=== PATIENT | male | born 1930 | race Hispanic/Latino ===

== ENCOUNTER 2017-09-29 10:06 | Inpatient (IN) | payer OTHER ==
[~2017-09-29] VITALS: Ht 160 cm; Wt 78.0 kg
[2017-09-29 10:51] LABS: BASOPHILS % (AUTO) 0.6 % (0.0-5.0); EOSINOPHILS % (AUTO) 1.2 % (0.0-8.0); HEMATOCRIT 32.6 % (42-54); LYMPHOCYTES % (AUTO) 13.2 % (21.0-51.0); MEAN CORPUSCULAR HEMOGLOBIN 34.5 pg (27.0-33.0); MEAN CORPUSCULAR HGB CONC 34.8 g/dL (32.0-36.0); MEAN CORPUSCULAR VOLUME 99.4 fL (79-99); MONOCYTES % (AUTO) 8.3 % (3.0-13.0); NEUTROPHILS % (AUTO) 76.7 % (40.0-77.0); PLATELET COUNT (AUTO) 206 K/uL (130-400); RED BLOOD CELL COUNT(AUTO) 3.28 MIL/uL (4.50-6.20); RED CELL DISTRIBUTION WIDTH 14.8 % (11.0-15.5); WHITE BLOOD COUNT (AUTO) 5.1 K/uL (4.8-10.8)
[2017-09-29 11:07] LABS: CREATININE 1.4 mg/dL (0.5-1.5); POTASSIUM 4.9 mmol/L (3.5-5.1)
[2017-09-29 11:21] LABS: CREATINE KINASE MB 2.5 ng/mL (0.5-3.6)
[2017-09-29 11:42] LABS: INR 0.94 (0.85-1.15); PARTIAL THROMBOPLASTIN TIME 27.8 SEC (26.3-35.5); PROTHROMBIN TIME 9.7 SEC (9.6-11.6)
[2017-09-29 12:06] LABS: APPEARANCE,URINE Clear (CLEAR); BILIRUBIN,URINE Negative (NEGATIVE); COLOR,URINE Yellow (YELLOW); GLUCOSE, URINE (UA) Negative (NEGATIVE); KETONES,URINE Negative (NEGATIVE); LEUKOCYTE ESTERASE ,URINE Negative (NEGATIVE); NITRATE,URINE Negative (NEGATIVE); OCCULT BLOOD,URINE Negative (NEGATIVE); PROTEIN,URINE Negative (NEGATIVE); UROBILINOGEN,URINE 0.2 mg/dL (0.2-1.0)
[2017-09-29] MEDS ORDERED: MAG HYDROX/AL HYDROX/SIMETH ES 30 ML SUSP UDCUP PO PRN (14:30)
[2017-09-29] MEDS ORDERED: POTASSIUM CHLORIDE 20 MEQ ERTAB PO PRN (14:30)
[2017-09-29] MEDS ORDERED: LACTULOSE 20 GM/30 ML UDCUP PO PRN (14:30)
[2017-09-29] MEDS ORDERED: LEVOFLOXACIN 500 MG/D5W 100 ML 100 ML IV SCH (14:30)
[2017-09-29] MEDS ORDERED: HYDRALAZINE HCL 20 MG/ML VIAL IV PRN (14:30)
[2017-09-29] MEDS ORDERED: ACETAMINOPHEN 325 MG TAB PO PRN ×2 (14:30)
[2017-09-29] MEDS ORDERED: ONDANSETRON HCL 4 MG/2 ML VIAL IV PRN (14:30)
[2017-09-29] MEDS ORDERED: GUAIFENESIN-DM 200/20 MG 10 ML PO PRN (14:30)
[2017-09-29] MEDS ORDERED: POTASSIUM CHLORIDE 20MEQ/100ML 100 ML IV PRN (14:30)
[2017-09-29] MEDS ORDERED: NITROGLYCERIN 0.4 MG SL TAB SL PRN (14:30)
[2017-09-29] MEDS ORDERED: MORPHINE SULFATE 4 MG/1ML SYG IV PRN (14:30)
[2017-09-29] MEDS ORDERED: MORPHINE SULFATE 2 MG/ML 1ML SYG IV PRN (14:30)
[2017-09-29] MEDS ORDERED: POTASSIUM CHLORIDE 10% ELIXIR 20 MEQ/15 ML UDCUP PO PRN (14:30)
[2017-09-29] MEDS ORDERED: LIDOCAINE HCL-MPF 1% 2ML VIAL IVP PRN (14:30)
[2017-09-29] MEDS ORDERED: ACETAMINOPHEN-CODEINE 300/30MG TAB PO PRN ×2 (14:30)
[2017-09-29 17:35] VITALS: BP 122/66
[2017-09-29] MEDS ORDERED: ISOS20TA7 PO (17:35)
[2017-09-29] MEDS ORDERED: CLOP75TA32 PO (17:35)
[2017-09-29] MEDS ORDERED: LOSA25TA21 PO (17:35)
[2017-09-29] MEDS ORDERED: CARB-101 PO (17:35)
[2017-09-29] MEDS ORDERED: ROPI3TAB3 PO (17:35)
[2017-09-29] MEDS ORDERED: ATOR40TA69 PO (17:35)
[2017-09-29] MEDS ORDERED: RASA0.5T2 PO (17:35)
[2017-09-29] MEDS ORDERED: CLIN300C9 PO (17:35)
[2017-09-29] MEDS ORDERED: RANO500T2 PO (17:35)
[2017-09-29] MEDS ORDERED: RASA1TAB4 PO (17:35)
[2017-09-29] MEDS ORDERED: FURO20TA4 PO (17:35)
[2017-09-29] MEDS ORDERED: LEVO112T7 PO (17:35)
[2017-09-29] MEDS ORDERED: POTA-79 PO (17:35)
[2017-09-29] MEDS ORDERED: METO-408 PO (17:35)
[2017-09-29 20:00] VITALS: BP 97/54
[2017-09-29] MEDS ORDERED: IPRATROPIUM/ALBUTEROL SULFATE 3 ML SOLUTION IH SCH (21:30)
[2017-09-29] MEDS: FAMOTIDINE 20MG TAB 20 MG TAB PO SCH (21:32)
[2017-09-29] MEDS: METOPROLOL TARTRATE 25 MG TAB PO SCH (21:36)
[2017-09-29 21:38] VITALS: BP 137/57
[2017-09-30] VITALS (7 sets, daily range): BP systolic 122–156; BP diastolic 58–79
[2017-09-30] MEDS ORDERED: VANCOMYCIN 1GM+NS 250ML 250 ML IV SCH
[2017-09-30] MEDS ORDERED: VANCOMYCIN PROTOCOL PER PHARMACY IV SCH
[2017-09-30] MEDS ORDERED: IPRATROPIUM/ALBUTEROL SULFATE 3 ML SOLUTION IH PRN (00:15)
[2017-09-30] MEDS ORDERED: VANCOMYCIN 1GM+NS 250ML 250 ML IV ONE (01:17)
[2017-09-30] MEDS: VANCOMYCIN 1.5 GM in SODIUM CHLORIDE 0.9% 250 ML IV SCH (01:21)
[2017-09-30 05:13] LABS: HEMATOCRIT 26.7 % (42-54); MEAN CORPUSCULAR HEMOGLOBIN 33.8 pg (27.0-33.0); MEAN CORPUSCULAR HGB CONC 34.1 g/dL (32.0-36.0); MEAN CORPUSCULAR VOLUME 99.1 fL (79-99); PLATELET COUNT (AUTO) 175 K/uL (130-400); WHITE BLOOD COUNT (AUTO) 4.2 K/uL (4.8-10.8)
[2017-09-30 05:32] LABS: CREATININE 1.3 mg/dL (0.5-1.5); POTASSIUM 4.8 mmol/L (3.5-5.1)
[2017-09-30] MEDS ORDERED: COMPOUND IV REFRIGERATED 1 EACH IVSOLN MISC PRN (06:30)
[2017-09-30] MEDS: FAMOTIDINE 20MG TAB 20 MG TAB PO SCH ×2 (09:34→20:18)
[2017-09-30] MEDS: ENOXAPARIN SODIUM 40 MG/0.4 ML SYRINGE SQ SCH (09:34)
[2017-09-30] MEDS: ASPIRIN 325 MG TABLET PO SCH (09:34)
[2017-09-30] MEDS: METOPROLOL TARTRATE 25 MG TAB PO SCH (09:34)
[2017-09-30] MEDS: CARBIDOPA-LEVODOPA 25-100 TAB PO SCH ×3 (12:53→20:18)
[2017-09-30] MEDS: RANOLAZINE 500 MG TAB.SR.12H PO SCH ×2 (13:04→20:18)
[2017-09-30] MEDS: ROPINIROLE HCL 1 MG TABLET PO SCH ×2 (13:05→20:18)
[2017-09-30] MEDS: POTASSIUM CHLORIDE 20 MEQ ERTAB PO SCH (20:18)
[2017-09-30] MEDS: LEVOFLOXACIN 500 MG/D5W 100 ML 100 ML IV SCH (20:19)
[2017-09-30] MEDS ORDERED: METOPROLOL TARTRATE 25 MG TAB PO SCH (21:00)
[2017-09-30] MEDS: VANCOMYCIN 1.25 GM in SODIUM CHLORIDE 0.9% 250 ML IV SCH (21:31)
[2017-10-01] MEDS: VANCOMYCIN 1.5 GM in SODIUM CHLORIDE 0.9% 250 ML IV SCH (01:00)
[2017-10-01 03:38] VITALS: BP 137/67
[2017-10-01 08:00] VITALS: BP 169/74
[2017-10-01] MEDS: ATORVASTATIN CALCIUM 40 MG TABLET PO SCH (08:25)
[2017-10-01] MEDS: ASPIRIN 325 MG TABLET PO SCH (08:25)
[2017-10-01] MEDS: RANOLAZINE 500 MG TAB.SR.12H PO SCH ×3 (08:26→20:19)
[2017-10-01] MEDS: ROPINIROLE HCL 1 MG TABLET PO SCH ×3 (08:26→20:18)
[2017-10-01] MEDS: FAMOTIDINE 20MG TAB 20 MG TAB PO SCH ×2 (08:26→20:18)
[2017-10-01] MEDS: ISOSORBIDE MONONITRATE 20 MG TABLET PO SCH (08:26)
[2017-10-01] MEDS: LOSARTAN 50 MG TABLET PO SCH (08:27)
[2017-10-01] MEDS: METOPROLOL TARTRATE 25 MG TAB PO SCH (08:27)
[2017-10-01] MEDS: CLOPIDOGREL BISULFATE 75 MG TAB PO SCH (08:28)
[2017-10-01] MEDS: LEVOTHYROXINE 112 MCG TABLET PO SCH (08:28)
[2017-10-01] MEDS: POTASSIUM CHLORIDE 20 MEQ ERTAB PO SCH ×2 (08:28→20:18)
[2017-10-01] MEDS: CARBIDOPA-LEVODOPA 25-100 TAB PO SCH ×4 (08:29→20:18)
[2017-10-01] MEDS: FUROSEMIDE 20 MG TABLET PO SCH (08:29)
[2017-10-01] MEDS: ENOXAPARIN SODIUM 40 MG/0.4 ML SYRINGE SQ SCH (08:32)
[2017-10-01] MEDS: RASAGILINE 1 MG PO SCH (09:00)
[2017-10-01] MEDS: RASAGILINE 0.5 MG PO SCH (09:00)
[2017-10-01 11:58] VITALS: BP 134/56
[2017-10-01 15:53] VITALS: BP 121/68
[2017-10-01 19:19] VITALS: BP 148/80
[2017-10-01] MEDS: LEVOFLOXACIN 500 MG/D5W 100 ML 100 ML IV SCH (20:18)
[2017-10-01] MEDS: VANCOMYCIN 1.25 GM in SODIUM CHLORIDE 0.9% 250 ML IV SCH (21:50)
[2017-10-01 23:22] VITALS: BP 156/72
[2017-10-02] MEDS: VANCOMYCIN 1.5 GM in SODIUM CHLORIDE 0.9% 250 ML IV SCH (01:00)
[2017-10-02 03:30] VITALS: BP 140/76
[2017-10-02 06:51] LABS: HEMATOCRIT 29.2 % (42-54); MEAN CORPUSCULAR HEMOGLOBIN 34.4 pg (27.0-33.0); MEAN CORPUSCULAR HGB CONC 34.6 g/dL (32.0-36.0); MEAN CORPUSCULAR VOLUME 99.3 fL (79-99); NUCLEATED RED BLOOD CELLS 0.1 % (0.0-0.19); PLATELET COUNT (AUTO) 171 K/uL (130-400); RED BLOOD CELL COUNT(AUTO) 2.94 MIL/uL (4.50-6.20); RED CELL DISTRIBUTION WIDTH 14.4 % (11.0-15.5); WHITE BLOOD COUNT (AUTO) 3.7 K/uL (4.8-10.8)
[2017-10-02 08:00] VITALS: BP 176/81
[2017-10-02] MEDS: RASAGILINE 1 MG PO SCH (09:00)
[2017-10-02] MEDS: RASAGILINE 0.5 MG PO SCH (09:00)
[2017-10-02] MEDS: RANOLAZINE 500 MG TAB.SR.12H PO SCH ×3 (09:24→20:07)
[2017-10-02] MEDS: CLOPIDOGREL BISULFATE 75 MG TAB PO SCH (09:24)
[2017-10-02] MEDS: ASPIRIN 325 MG TABLET PO SCH (09:24)
[2017-10-02] MEDS: ATORVASTATIN CALCIUM 40 MG TABLET PO SCH (09:24)
[2017-10-02] MEDS: ISOSORBIDE MONONITRATE 20 MG TABLET PO SCH (09:24)
[2017-10-02] MEDS: ROPINIROLE HCL 1 MG TABLET PO SCH ×3 (09:24→20:07)
[2017-10-02] MEDS: LEVOTHYROXINE 112 MCG TABLET PO SCH (09:24)
[2017-10-02] MEDS: FUROSEMIDE 20 MG TABLET PO SCH (09:25)
[2017-10-02] MEDS: CARBIDOPA-LEVODOPA 25-100 TAB PO SCH ×4 (09:25→20:07)
[2017-10-02] MEDS: METOPROLOL TARTRATE 25 MG TAB PO SCH (09:25)
[2017-10-02] MEDS: LOSARTAN 50 MG TABLET PO SCH (09:25)
[2017-10-02] MEDS: FAMOTIDINE 20MG TAB 20 MG TAB PO SCH ×2 (09:26→20:08)
[2017-10-02] MEDS: ENOXAPARIN SODIUM 40 MG/0.4 ML SYRINGE SQ SCH (09:26)
[2017-10-02] MEDS: POTASSIUM CHLORIDE 20 MEQ ERTAB PO SCH ×2 (09:26→20:08)
[2017-10-02 12:00] VITALS: BP 176/72
[2017-10-02] MEDS: IPRATROPIUM/ALBUTEROL SULFATE 3 ML SOLUTION IH SCH ×3 (14:16→22:05)
[2017-10-02 16:00] VITALS: BP 148/48
[2017-10-02 19:27] VITALS: BP 125/68
[2017-10-02] MEDS: LEVOFLOXACIN 500 MG/D5W 100 ML 100 ML IV SCH (20:07)
[2017-10-02] MEDS: VANCOMYCIN 1.25 GM in SODIUM CHLORIDE 0.9% 250 ML IV SCH (21:12)
[2017-10-02 23:16] VITALS: BP 129/57
[2017-10-03] MEDS: VANCOMYCIN 1.5 GM in SODIUM CHLORIDE 0.9% 250 ML IV SCH (01:00)
[2017-10-03] MEDS: IPRATROPIUM/ALBUTEROL SULFATE 3 ML SOLUTION IH SCH ×6 (02:11→21:23)
[2017-10-03 03:39] VITALS: BP 139/70
[2017-10-03] MEDS: LEVOTHYROXINE 112 MCG TABLET PO SCH (05:56)
[2017-10-03 06:00] LABS: HEMATOCRIT 27.2 % (42-54); MEAN CORPUSCULAR HGB CONC 35.6 g/dL (32.0-36.0); MEAN CORPUSCULAR VOLUME 98.3 fL (79-99); PLATELET COUNT (AUTO) 178 K/uL (130-400); RED BLOOD CELL COUNT(AUTO) 2.77 MIL/uL (4.50-6.20); RED CELL DISTRIBUTION WIDTH 14.5 % (11.0-15.5); WHITE BLOOD COUNT (AUTO) 4.1 K/uL (4.8-10.8)
[2017-10-03 07:54] VITALS: BP 147/73
[2017-10-03] MEDS: RASAGILINE 1 MG PO SCH (09:00)
[2017-10-03] MEDS: RASAGILINE 0.5 MG PO SCH (09:00)
[2017-10-03] MEDS: ENOXAPARIN SODIUM 40 MG/0.4 ML SYRINGE SQ SCH (09:00)
[2017-10-03] MEDS: ASPIRIN 325 MG TABLET PO SCH (11:05)
[2017-10-03] MEDS: ISOSORBIDE MONONITRATE 20 MG TABLET PO SCH (11:05)
[2017-10-03] MEDS: RANOLAZINE 500 MG TAB.SR.12H PO SCH ×3 (11:05→21:09)
[2017-10-03] MEDS: POTASSIUM CHLORIDE 20 MEQ ERTAB PO SCH ×2 (11:06→21:10)
[2017-10-03] MEDS: LOSARTAN 50 MG TABLET PO SCH (11:06)
[2017-10-03] MEDS: ATORVASTATIN CALCIUM 40 MG TABLET PO SCH (11:06)
[2017-10-03] MEDS: FAMOTIDINE 20MG TAB 20 MG TAB PO SCH ×2 (11:06→21:09)
[2017-10-03] MEDS: METOPROLOL TARTRATE 25 MG TAB PO SCH (11:07)
[2017-10-03] MEDS: FUROSEMIDE 20 MG TABLET PO SCH (11:07)
[2017-10-03] MEDS: CLOPIDOGREL BISULFATE 75 MG TAB PO SCH (11:08)
[2017-10-03] MEDS: CARBIDOPA-LEVODOPA 25-100 TAB PO SCH ×4 (11:08→21:09)
[2017-10-03] MEDS: ROPINIROLE HCL 1 MG TABLET PO SCH ×3 (11:08→21:09)
[2017-10-03 12:00] VITALS: BP 145/79
[2017-10-03 16:00] VITALS: BP 132/54
[2017-10-03 19:00] VITALS: BP 120/55
[2017-10-03] MEDS: LEVOFLOXACIN 500 MG/D5W 100 ML 100 ML IV SCH (21:14)
[2017-10-03] MEDS: VANCOMYCIN 1.25 GM in SODIUM CHLORIDE 0.9% 250 ML IV SCH (21:20)
[2017-10-03 23:54] VITALS: BP 119/89
[2017-10-04] MEDS: IPRATROPIUM/ALBUTEROL SULFATE 3 ML SOLUTION IH SCH (01:32)
[2017-10-04 04:00] VITALS: BP 143/64
[2017-10-04] MEDS: LEVOTHYROXINE 112 MCG TABLET PO SCH (05:55)
[2017-10-04 08:00] VITALS: BP 147/73
[2017-10-04] MEDS: RASAGILINE 1 MG PO SCH (09:00)
[2017-10-04] MEDS: RASAGILINE 0.5 MG PO SCH (09:00)
[2017-10-04] MEDS: METOPROLOL TARTRATE 25 MG TAB PO SCH (09:02)
[2017-10-04] MEDS: FUROSEMIDE 20 MG TABLET PO SCH (09:02)
[2017-10-04] MEDS: CLOPIDOGREL BISULFATE 75 MG TAB PO SCH (09:03)
[2017-10-04] MEDS: RANOLAZINE 500 MG TAB.SR.12H PO SCH ×3 (09:03→20:40)
[2017-10-04] MEDS: ATORVASTATIN CALCIUM 40 MG TABLET PO SCH (09:03)
[2017-10-04] MEDS: FAMOTIDINE 20MG TAB 20 MG TAB PO SCH ×2 (09:04→20:40)
[2017-10-04] MEDS: ASPIRIN 325 MG TABLET PO SCH (09:04)
[2017-10-04] MEDS: CARBIDOPA-LEVODOPA 25-100 TAB PO SCH ×4 (09:04→20:40)
[2017-10-04] MEDS: ROPINIROLE HCL 1 MG TABLET PO SCH ×3 (09:04→20:40)
[2017-10-04] MEDS: LOSARTAN 50 MG TABLET PO SCH (09:04)
[2017-10-04] MEDS: POTASSIUM CHLORIDE 20 MEQ ERTAB PO SCH ×2 (09:05→20:40)
[2017-10-04] MEDS: ISOSORBIDE MONONITRATE 20 MG TABLET PO SCH (09:05)
[2017-10-04] MEDS: ENOXAPARIN SODIUM 40 MG/0.4 ML SYRINGE SQ SCH (09:07)
[2017-10-04] MEDS ORDERED: DOXY100T2 PO (10:08)
[2017-10-04 11:43] VITALS: BP 153/73
[2017-10-04 16:00] VITALS: BP 111/55
[2017-10-04 19:00] VITALS: BP 134/59
[2017-10-04] MEDS: LEVOFLOXACIN 500 MG/D5W 100 ML 100 ML IV SCH (20:39)
[2017-10-04] MEDS: VANCOMYCIN 1.25 GM in SODIUM CHLORIDE 0.9% 250 ML IV SCH (20:41)
[2017-10-05] VITALS: BP 122/58
[2017-10-05 04:00] VITALS: BP 141/73
[2017-10-05] MEDS: LEVOTHYROXINE 112 MCG TABLET PO SCH (06:21)
[2017-10-05 08:00] VITALS: BP 142/76
[2017-10-05] MEDS: RASAGILINE 1 MG PO SCH (09:00)
[2017-10-05] MEDS: RASAGILINE 0.5 MG PO SCH (09:00)
[2017-10-05] MEDS: ISOSORBIDE MONONITRATE 20 MG TABLET PO SCH (09:13)
[2017-10-05] MEDS: ASPIRIN 325 MG TABLET PO SCH (09:13)
[2017-10-05] MEDS: METOPROLOL TARTRATE 25 MG TAB PO SCH (09:13)
[2017-10-05] MEDS: POTASSIUM CHLORIDE 20 MEQ ERTAB PO SCH (09:13)
[2017-10-05] MEDS: ROPINIROLE HCL 1 MG TABLET PO SCH ×2 (09:13→13:15)
[2017-10-05] MEDS: FUROSEMIDE 20 MG TABLET PO SCH (09:14)
[2017-10-05] MEDS: FAMOTIDINE 20MG TAB 20 MG TAB PO SCH (09:14)
[2017-10-05] MEDS: ATORVASTATIN CALCIUM 40 MG TABLET PO SCH (09:14)
[2017-10-05] MEDS: RANOLAZINE 500 MG TAB.SR.12H PO SCH ×2 (09:14→13:15)
[2017-10-05] MEDS: CLOPIDOGREL BISULFATE 75 MG TAB PO SCH (09:14)
[2017-10-05] MEDS: LOSARTAN 50 MG TABLET PO SCH (09:14)
[2017-10-05] MEDS: CARBIDOPA-LEVODOPA 25-100 TAB PO SCH ×2 (09:14→13:15)
[2017-10-05] MEDS: ENOXAPARIN SODIUM 40 MG/0.4 ML SYRINGE SQ SCH (09:16)
[2017-10-05 11:46] VITALS: BP 87/43
[2017-10-05 13:22] VITALS: BP 116/60
== END 2017-10-05 15:45 | DRG 603 ==
LOC: EDH 10:06 → EDHIP 14:20 → OBSVTOIN 14:20 → 3DH 16:54
PROVIDERS: ADMIT Internal Medicine; ATTEND Internal Medicine
DX: L03.115 Cellulitis of right lower limb (principal); G20 Parkinson's disease; F03.90 Unspecified dementia, unspecified severity, without behavioral disturbance, psychotic disturbance, mood disturbance, and anxiety; L30.9 Dermatitis, unspecified; I73.9 Peripheral vascular disease, unspecified; L03.116 Cellulitis of left lower limb; I10 Essential (primary) hypertension; E78.5 Hyperlipidemia, unspecified; I25.10 Atherosclerotic heart disease of native coronary artery without angina pectoris; I87.2 Venous insufficiency (chronic) (peripheral); Z95.1 Presence of aortocoronary bypass graft; Z87.891 Personal history of nicotine dependence; Z86.73 Personal history of transient ischemic attack (TIA), and cerebral infarction without residual deficits; Z82.49 Family history of ischemic heart disease and other diseases of the circulatory system
CPT/HCPCS: 36415; 71045; 80048; 80202; 81003; 82550; 82553; 82948; 83605; 84484; 85025; 85027; 85610; 85730; 87040; 93005; 93925; 93970; 94640; 94664; 97039; J1650; J1956; J3370; J7030

== ENCOUNTER 2017-10-29 10:27 | Inpatient (IN) | payer OTHER ==
[~2017-10-29] VITALS: Ht 157.5 cm; Wt 70.8 kg
[~2017-10-29 10:27] MED LIST: ATOR40TA69 PO; CARB-101 PO; CLOP75TA32 PO; DOXY100T2 PO; FURO20TA4 PO; ISOS20TA7 PO; LEVO112T7 PO; LOSA25TA21 PO; METO-408 PO; POTA-79 PO; RANO500T2 PO; RASA0.5T2 PO; RASA1TAB4 PO; ROPI3TAB3 PO
[2017-10-29] MEDS ORDERED: SODIUM CHLORIDE 0.9% 1000ML 1,000 ML IV ONE (11:13)
[2017-10-29] MEDS ORDERED: KETOROLAC TROMETHAMINE 15MG/ML ONE (11:13)
[2017-10-29 11:17] LABS: BASOPHILS % (AUTO) 0.5 % (0.0-5.0); EOSINOPHILS % (AUTO) 3.6 % (0.0-8.0); HEMATOCRIT 29.7 % (42-54); LYMPHOCYTES % (AUTO) 21.7 % (21.0-51.0); MEAN CORPUSCULAR HEMOGLOBIN 35.5 pg (27.0-33.0); MEAN CORPUSCULAR HGB CONC 35.7 g/dL (32.0-36.0); MEAN CORPUSCULAR VOLUME 99.4 fL (79-99); MONOCYTES % (AUTO) 6.9 % (3.0-13.0); NEUTROPHILS % (AUTO) 67.3 % (40.0-77.0); NUCLEATED RED BLOOD CELLS 0.1 % (0.0-0.19); PLATELET COUNT (AUTO) 152 K/uL (130-400); RED BLOOD CELL COUNT(AUTO) 2.99 MIL/uL (4.50-6.20); RED CELL DISTRIBUTION WIDTH 14.8 % (11.0-15.5); WHITE BLOOD COUNT (AUTO) 5.8 K/uL (4.8-10.8)
[2017-10-29 11:25] LABS: CREATININE 1.8 mg/dL (0.5-1.5); POTASSIUM 4.7 mmol/L (3.5-5.1)
[2017-10-29 11:30] LABS: ALBUMIN 3.2 g/dL (3.5-5.0); BILIRUBIN,TOTAL 0.5 mg/dL (0.2-1.0); TOTAL PROTEIN, SERUM 6.3 g/dL (6.0-8.3)
[2017-10-29 11:33] LABS: INR 0.96 (0.85-1.15); PARTIAL THROMBOPLASTIN TIME 27.8 SEC (26.3-35.5); PROTHROMBIN TIME 10.1 SEC (9.6-11.6)
[2017-10-29 14:00] LABS: ERYTHROCYTE SEDIMENTATION RATE 14 MM/HR (0-15)
[2017-10-29] MEDS ORDERED: ZOSYN 3.375GM+NS 50ML 50 ML IV ONE (19:01)
[2017-10-29] MEDS ORDERED: SODIUM CHLORIDE 0.9% 1000ML 1,000 ML IV SCH (19:30)
[2017-10-29] MEDS ORDERED: ONDANSETRON HCL 4 MG/2 ML VIAL IVP PRN (19:30)
[2017-10-29] MEDS ORDERED: VANCOMYCIN PROTOCOL PER PHARMACY IV SCH (19:30)
[2017-10-29] MEDS ORDERED: VANCOMYCIN 1GM+NS 250ML 250 ML IV SCH (20:00)
[2017-10-29] MEDS ORDERED: VANCOMYCIN 1GM+NS 250ML 250 ML IV ONE (20:26)
[2017-10-30] VITALS (7 sets, daily range): BP systolic 90–138; BP diastolic 37–88
[2017-10-30] MEDS: ZOSYN 3.375GM+NS 50ML 50 ML IV SCH ×3 (03:32→21:04)
[2017-10-30 05:59] LABS: HEMATOCRIT 30.9 % (42-54); MEAN CORPUSCULAR HEMOGLOBIN 33.9 pg (27.0-33.0); MEAN CORPUSCULAR HGB CONC 34.1 g/dL (32.0-36.0); MEAN CORPUSCULAR VOLUME 99.3 fL (79-99); PLATELET COUNT (AUTO) 141 K/uL (130-400); RED BLOOD CELL COUNT(AUTO) 3.11 MIL/uL (4.50-6.20); RED CELL DISTRIBUTION WIDTH 14.9 % (11.0-15.5); WHITE BLOOD COUNT (AUTO) 5.1 K/uL (4.8-10.8)
[2017-10-30] MEDS: IPRATROPIUM/ALBUTEROL SULFATE 3 ML SOLUTION IH SCH ×5 (06:07→23:00)
[2017-10-30 06:12] LABS: CREATININE 1.5 mg/dL (0.5-1.5); POTASSIUM 4.7 mmol/L (3.5-5.1)
[2017-10-30] MEDS ORDERED: COMPOUND IV REFRIGERATED 1 EACH IVSOLN MISC PRN (06:15)
[2017-10-30] MEDS ORDERED: LACTULOSE 20 GM/30 ML UDCUP PO PRN (09:00)
[2017-10-30] MEDS ORDERED: ATORVASTATIN CALCIUM 40 MG TABLET PO SCH (09:00)
[2017-10-30] MEDS: POLYETHYLENE GLYCOL 3350 17 GM POWD.PACK PO SCH ×2 (09:00→14:24)
[2017-10-30] MEDS ORDERED: FAMOTIDINE 20MG TAB 20 MG TAB PO SCH (09:00)
[2017-10-30] MEDS ORDERED: GUAIFENESIN-DM 200/20 MG 10 ML PO PRN (09:00)
[2017-10-30] MEDS ORDERED: ENOXAPARIN SODIUM 30 MG/0.3 ML SQ SCH (09:00)
[2017-10-30] MEDS ORDERED: HYDRALAZINE HCL 20 MG/ML VIAL IV PRN (09:00)
[2017-10-30] MEDS: LEVOTHYROXINE 112 MCG TABLET PO SCH (09:00)
[2017-10-30] MEDS ORDERED: RASAGILINE MESYLATE 0.5 MG PO SCH (09:00)
[2017-10-30] MEDS: FAMOTIDINE 20MG TAB 20 MG TAB PO SCH ×2 (09:00→21:05)
[2017-10-30] MEDS ORDERED: MAGNESIUM HYDROXIDE 30 ML/UDCUP PO PRN (09:00)
[2017-10-30] MEDS ORDERED: NITROGLYCERIN 0.4 MG SL TAB SL PRN (09:00)
[2017-10-30] MEDS ORDERED: MAG HYDROX/AL HYDROX/SIMETH ES 30 ML SUSP UDCUP PO PRN (09:00)
[2017-10-30] MEDS ORDERED: RASAGILINE MESYLATE 1 MG PO SCH (09:00)
[2017-10-30] MEDS: ROPINIROLE HCL 1 MG TABLET PO SCH ×3 (09:14→21:06)
[2017-10-30] MEDS: CARBIDOPA-LEVODOPA 25-100 TAB PO SCH ×4 (09:15→21:06)
[2017-10-30] MEDS: CLOPIDOGREL BISULFATE 75 MG TAB PO SCH (09:15)
[2017-10-30] MEDS: RANOLAZINE 500 MG TAB.SR.12H PO SCH ×3 (09:15→21:05)
[2017-10-30] MEDS: ACETAMINOPHEN 325 MG TAB PO PRN (18:31)
[2017-10-30] MEDS: ATORVASTATIN CALCIUM 40 MG TABLET PO SCH (21:05)
[2017-10-31 04:00] VITALS: BP 139/78
[2017-10-31 06:03] LABS: HEMATOCRIT 30.5 % (42-54); MEAN CORPUSCULAR HEMOGLOBIN 35.3 pg (27.0-33.0); MEAN CORPUSCULAR HGB CONC 35.6 g/dL (32.0-36.0); MEAN CORPUSCULAR VOLUME 99.1 fL (79-99); PLATELET COUNT (AUTO) 139 K/uL (130-400); RED BLOOD CELL COUNT(AUTO) 3.08 MIL/uL (4.50-6.20); RED CELL DISTRIBUTION WIDTH 14.9 % (11.0-15.5); WHITE BLOOD COUNT (AUTO) 4.4 K/uL (4.8-10.8)
[2017-10-31 06:05] LABS: CREATININE 1.4 mg/dL (0.5-1.5); POTASSIUM 4.6 mmol/L (3.5-5.1)
[2017-10-31] MEDS: IPRATROPIUM/ALBUTEROL SULFATE 3 ML SOLUTION IH SCH ×4 (06:07→23:23)
[2017-10-31 08:00] VITALS: BP 129/72
[2017-10-31] MEDS: TRAMADOL HCL 50 MG TABLET PO PRN (10:07)
[2017-10-31] MEDS: VANCOMYCIN 1.25 GM in SODIUM CHLORIDE 0.9% 250 ML IV SCH (10:07)
[2017-10-31] MEDS: RANOLAZINE 500 MG TAB.SR.12H PO SCH ×3 (10:09→21:46)
[2017-10-31] MEDS: ROPINIROLE HCL 1 MG TABLET PO SCH ×3 (10:09→21:46)
[2017-10-31] MEDS: LEVOTHYROXINE 112 MCG TABLET PO SCH (10:09)
[2017-10-31] MEDS: CLOPIDOGREL BISULFATE 75 MG TAB PO SCH (10:09)
[2017-10-31] MEDS: POLYETHYLENE GLYCOL 3350 17 GM POWD.PACK PO SCH (10:10)
[2017-10-31] MEDS: FAMOTIDINE 20MG TAB 20 MG TAB PO SCH ×2 (10:10→21:45)
[2017-10-31] MEDS: CARBIDOPA-LEVODOPA 25-100 TAB PO SCH ×4 (10:10→21:46)
[2017-10-31] MEDS: ZOSYN 3.375GM+NS 50ML 50 ML IV SCH ×2 (12:00→21:45)
[2017-10-31 16:00] VITALS: BP 167/85
[2017-10-31] MEDS: ACETAMINOPHEN 325 MG TAB PO PRN (16:13)
[2017-10-31 19:22] VITALS: BP 144/67
[2017-10-31] MEDS: ATORVASTATIN CALCIUM 40 MG TABLET PO SCH (21:45)
[2017-11-01 00:20] VITALS: BP 94/67
[2017-11-01] MEDS ORDERED: SODIUM CHLORIDE 0.9% 250 ML IV SCH (02:15)
[2017-11-01] MEDS ORDERED: SODIUM CHLORIDE 0.9% 1000ML 1,000 ML IV SCH (02:15)
[2017-11-01] MEDS: ZOSYN 3.375GM+NS 50ML 50 ML IV SCH ×3 (03:42→20:47)
[2017-11-01 04:15] VITALS: BP 112/74
[2017-11-01 05:01] LABS: HEMATOCRIT 28.2 % (42-54); MEAN CORPUSCULAR HEMOGLOBIN 34.2 pg (27.0-33.0); MEAN CORPUSCULAR HGB CONC 34.7 g/dL (32.0-36.0); MEAN CORPUSCULAR VOLUME 98.7 fL (79-99); PLATELET COUNT (AUTO) 140 K/uL (130-400); RED BLOOD CELL COUNT(AUTO) 2.85 MIL/uL (4.50-6.20); RED CELL DISTRIBUTION WIDTH 14.6 % (11.0-15.5); WHITE BLOOD COUNT (AUTO) 4.4 K/uL (4.8-10.8)
[2017-11-01 05:20] LABS: CREATININE 1.2 mg/dL (0.5-1.5); POTASSIUM 4.8 mmol/L (3.5-5.1)
[2017-11-01] MEDS: IPRATROPIUM/ALBUTEROL SULFATE 3 ML SOLUTION IH SCH ×4 (06:27→23:11)
[2017-11-01 08:30] VITALS: BP 114/66
[2017-11-01] MEDS: CARBIDOPA-LEVODOPA 25-100 TAB PO SCH ×4 (09:18→20:48)
[2017-11-01] MEDS: LEVOTHYROXINE 112 MCG TABLET PO SCH (09:18)
[2017-11-01] MEDS: RANOLAZINE 500 MG TAB.SR.12H PO SCH ×3 (09:18→20:48)
[2017-11-01] MEDS: CLOPIDOGREL BISULFATE 75 MG TAB PO SCH (09:18)
[2017-11-01] MEDS: POLYETHYLENE GLYCOL 3350 17 GM POWD.PACK PO SCH (09:18)
[2017-11-01] MEDS: FAMOTIDINE 20MG TAB 20 MG TAB PO SCH ×2 (09:18→20:47)
[2017-11-01] MEDS: ROPINIROLE HCL 1 MG TABLET PO SCH ×3 (09:18→20:48)
[2017-11-01 12:52] VITALS: BP 95/55
[2017-11-01 17:07] VITALS: BP 149/82
[2017-11-01 20:00] VITALS: BP 91/64
[2017-11-01] MEDS: ATORVASTATIN CALCIUM 40 MG TABLET PO SCH (20:48)
[2017-11-01] MEDS: ACETAMINOPHEN 325 MG TAB PO PRN (20:56)
[2017-11-02] VITALS: BP 111/73
[2017-11-02 04:00] VITALS: BP 134/58
[2017-11-02 04:09] LABS: HEMATOCRIT 28.1 % (42-54); MEAN CORPUSCULAR HGB CONC 35.4 g/dL (32.0-36.0); MEAN CORPUSCULAR VOLUME 98.9 fL (79-99); PLATELET COUNT (AUTO) 135 K/uL (130-400); RED BLOOD CELL COUNT(AUTO) 2.84 MIL/uL (4.50-6.20); RED CELL DISTRIBUTION WIDTH 14.6 % (11.0-15.5); WHITE BLOOD COUNT (AUTO) 4.8 K/uL (4.8-10.8)
[2017-11-02] MEDS: ZOSYN 3.375GM+NS 50ML 50 ML IV SCH ×3 (04:30→19:59)
[2017-11-02 04:35] LABS: CREATININE 1.4 mg/dL (0.5-1.5); POTASSIUM 4.7 mmol/L (3.5-5.1)
[2017-11-02] MEDS: IPRATROPIUM/ALBUTEROL SULFATE 3 ML SOLUTION IH SCH ×4 (06:44→23:30)
[2017-11-02 08:00] VITALS: BP 127/79
[2017-11-02] MEDS: LEVOTHYROXINE 112 MCG TABLET PO SCH (09:00)
[2017-11-02] MEDS: CLOPIDOGREL BISULFATE 75 MG TAB PO SCH (09:00)
[2017-11-02] MEDS: RANOLAZINE 500 MG TAB.SR.12H PO SCH ×3 (09:00→20:00)
[2017-11-02] MEDS: ROPINIROLE HCL 1 MG TABLET PO SCH ×3 (09:01→20:00)
[2017-11-02] MEDS: VANCOMYCIN 1.25 GM in SODIUM CHLORIDE 0.9% 250 ML IV SCH (09:01)
[2017-11-02] MEDS: CARBIDOPA-LEVODOPA 25-100 TAB PO SCH ×4 (09:01→20:00)
[2017-11-02] MEDS: POLYETHYLENE GLYCOL 3350 17 GM POWD.PACK PO SCH (09:01)
[2017-11-02] MEDS: FAMOTIDINE 20MG TAB 20 MG TAB PO SCH ×2 (09:02→20:00)
[2017-11-02 12:00] VITALS: BP 140/82
[2017-11-02 16:00] VITALS: BP 153/94
[2017-11-02] MEDS: TRAMADOL HCL 50 MG TABLET PO PRN (16:21)
[2017-11-02 19:00] VITALS: BP 142/80
[2017-11-02] MEDS: ATORVASTATIN CALCIUM 40 MG TABLET PO SCH (20:00)
[2017-11-03] VITALS: BP 142/90
[2017-11-03] MEDS: ZOSYN 3.375GM+NS 50ML 50 ML IV SCH ×3 (03:55→20:01)
[2017-11-03 04:00] VITALS: BP 115/64
[2017-11-03] MEDS: IPRATROPIUM/ALBUTEROL SULFATE 3 ML SOLUTION IH SCH ×4 (07:13→23:31)
[2017-11-03 09:28] VITALS: BP 145/80
[2017-11-03] MEDS: LEVOTHYROXINE 112 MCG TABLET PO SCH (10:20)
[2017-11-03] MEDS: ROPINIROLE HCL 1 MG TABLET PO SCH ×3 (10:20→20:01)
[2017-11-03] MEDS: FAMOTIDINE 20MG TAB 20 MG TAB PO SCH ×2 (10:20→20:01)
[2017-11-03] MEDS: POLYETHYLENE GLYCOL 3350 17 GM POWD.PACK PO SCH (10:20)
[2017-11-03] MEDS: RANOLAZINE 500 MG TAB.SR.12H PO SCH ×3 (10:20→20:01)
[2017-11-03] MEDS: CLOPIDOGREL BISULFATE 75 MG TAB PO SCH (10:21)
[2017-11-03] MEDS: CARBIDOPA-LEVODOPA 25-100 TAB PO SCH ×4 (10:21→20:01)
[2017-11-03 11:36] VITALS: BP 134/91
[2017-11-03 12:36] LABS: INR 0.98 (0.85-1.15); PARTIAL THROMBOPLASTIN TIME 28.9 SEC (26.3-35.5); PROTHROMBIN TIME 10.3 SEC (9.6-11.6)
[2017-11-03] MEDS ORDERED: HALOPERIDOL LACTATE 5 MG/ML VIAL IV SCH (13:45)
[2017-11-03 15:59] VITALS: BP 135/87
[2017-11-03 19:44] VITALS: BP 136/79
[2017-11-03] MEDS: ATORVASTATIN CALCIUM 40 MG TABLET PO SCH (20:01)
[2017-11-03] MEDS ORDERED: ZOLPIDEM TARTRATE 5 MG TAB PO SCH (21:00)
[2017-11-04] VITALS: BP 131/72
[2017-11-04] MEDS: ZOSYN 3.375GM+NS 50ML 50 ML IV SCH ×2 (04:00→12:00)
[2017-11-04 04:39] VITALS: BP 147/68
[2017-11-04] MEDS: IPRATROPIUM/ALBUTEROL SULFATE 3 ML SOLUTION IH SCH ×2 (06:53→11:02)
[2017-11-04 07:30] VITALS: BP 136/75
[2017-11-04] MEDS ORDERED: ENOXAPARIN SODIUM 30 MG/0.3 ML SQ SCH (09:00)
[2017-11-04] MEDS: ROPINIROLE HCL 1 MG TABLET PO SCH (09:31)
[2017-11-04] MEDS: POLYETHYLENE GLYCOL 3350 17 GM POWD.PACK PO SCH (09:31)
[2017-11-04] MEDS: LEVOTHYROXINE 112 MCG TABLET PO SCH (09:31)
[2017-11-04] MEDS: FAMOTIDINE 20MG TAB 20 MG TAB PO SCH (09:31)
[2017-11-04] MEDS: CARBIDOPA-LEVODOPA 25-100 TAB PO SCH ×2 (09:31→13:00)
[2017-11-04] MEDS: RANOLAZINE 500 MG TAB.SR.12H PO SCH (09:31)
[2017-11-04] MEDS: CLOPIDOGREL BISULFATE 75 MG TAB PO SCH (09:31)
[2017-11-04] MEDS: VANCOMYCIN 1.25 GM in SODIUM CHLORIDE 0.9% 250 ML IV SCH (09:32)
[2017-11-04 11:00] VITALS: BP 151/87
== END 2017-11-04 15:18 | DRG 603 ==
LOC: EDH 10:27 → EDHIP 17:30 → OBSVTOIN 17:30 → 3DH 23:36
PROVIDERS: ADMIT Internal Medicine; ATTEND Internal Medicine
DX: L03.114 Cellulitis of left upper limb (principal); N17.9 Acute kidney failure, unspecified; G20 Parkinson's disease; L03.115 Cellulitis of right lower limb; I73.9 Peripheral vascular disease, unspecified; L03.116 Cellulitis of left lower limb; W19.XXXA Unspecified fall, initial encounter; F03.90 Unspecified dementia, unspecified severity, without behavioral disturbance, psychotic disturbance, mood disturbance, and anxiety; I87.2 Venous insufficiency (chronic) (peripheral); E78.5 Hyperlipidemia, unspecified; I10 Essential (primary) hypertension; I25.10 Atherosclerotic heart disease of native coronary artery without angina pectoris; E03.9 Hypothyroidism, unspecified; D64.9 Anemia, unspecified; F02.80 Dementia in other diseases classified elsewhere, unspecified severity, without behavioral disturbance, psychotic disturbance, mood disturbance, and anxiety; Z95.1 Presence of aortocoronary bypass graft; Z87.891 Personal history of nicotine dependence; Z86.73 Personal history of transient ischemic attack (TIA), and cerebral infarction without residual deficits; Y93.89 Activity, other specified; Y92.128 Other place in nursing home as the place of occurrence of the external cause; Y99.8 Other external cause status; Z82.49 Family history of ischemic heart disease and other diseases of the circulatory system
CPT/HCPCS: 36415; 71045; 73030; 73080; 80048; 80053; 83605; 83880; 84484; 85025; 85027; 85610; 85651; 85730; 87040; 93005; 93971; 94640; 94664; 97039; A6453; J1630; J1650; J1885; J2543; J3370; J7030

== ENCOUNTER 2017-12-16 09:07 | Inpatient (IN) | payer OTHER ==
[~2017-12-16] VITALS: Ht 160 cm; Wt 77.1 kg
[~2017-12-16 09:07] MED LIST changes: -DOXY100T2 PO; -RASA0.5T2 PO; -RASA1TAB4 PO
[2017-12-16 09:44] LABS: BASOPHILS % (AUTO) 0.4 % (0.0-5.0); EOSINOPHILS % (AUTO) 3.2 % (0.0-8.0); HEMATOCRIT 31.8 % (42-54); LYMPHOCYTES % (AUTO) 20.5 % (21.0-51.0); MEAN CORPUSCULAR HEMOGLOBIN 33.8 pg (27.0-33.0); MEAN CORPUSCULAR HGB CONC 33.7 g/dL (32.0-36.0); MEAN CORPUSCULAR VOLUME 100.3 fL (79-99); MONOCYTES % (AUTO) 8.2 % (3.0-13.0); NEUTROPHILS % (AUTO) 67.7 % (40.0-77.0); PLATELET COUNT (AUTO) 206 K/uL (130-400); RED BLOOD CELL COUNT(AUTO) 3.17 MIL/uL (4.50-6.20); RED CELL DISTRIBUTION WIDTH 15.3 % (11.0-15.5); WHITE BLOOD COUNT (AUTO) 5.6 K/uL (4.8-10.8)
[2017-12-16 09:55] LABS: CREATININE 1.4 mg/dL (0.5-1.5); POTASSIUM 5.1 mmol/L (3.5-5.1)
[2017-12-16 10:00] LABS: ALBUMIN 3.3 g/dL (3.5-5.0); BILIRUBIN,TOTAL 0.4 mg/dL (0.2-1.0); TOTAL PROTEIN, SERUM 7.3 g/dL (6.0-8.3)
[2017-12-16 10:02] LABS: APPEARANCE,URINE Clear (CLEAR); BILIRUBIN,URINE Negative (NEGATIVE); COLOR,URINE Yellow (YELLOW); GLUCOSE, URINE (UA) Negative (NEGATIVE); KETONES,URINE Negative (NEGATIVE); LEUKOCYTE ESTERASE ,URINE Negative (NEGATIVE); NITRATE,URINE Negative (NEGATIVE); OCCULT BLOOD,URINE Negative (NEGATIVE); PROTEIN,URINE Negative (NEGATIVE); UROBILINOGEN,URINE 0.2 mg/dL (0.2-1.0)
[2017-12-16 10:49] LABS: ERYTHROCYTE SEDIMENTATION RATE 56 MM/HR (0-20)
[2017-12-16] MEDS ORDERED: HYDRALAZINE HCL 20 MG/ML VIAL ONE (12:38)
[2017-12-16] MEDS ORDERED: ZOSYN 3.375GM+NS 50ML 50 ML IV ONE (12:38)
[2017-12-16] MEDS ORDERED: VANCOMYCIN 1GM+NS 250ML 250 ML IV ONE (12:39)
[2017-12-16 15:50] VITALS: BP 179/72
[2017-12-16] MEDS ORDERED: VANCOMYCIN PROTOCOL PER PHARMACY IV SCH (16:15)
[2017-12-16] MEDS ORDERED: VANCOMYCIN 500MG+NS 100ML 100 ML IV ONE ×2 (16:30→19:00)
[2017-12-16 19:50] VITALS: BP 93/58
[2017-12-16] MEDS: POTASSIUM CHLORIDE 20 MEQ ERTAB PO SCH (21:04)
[2017-12-16] MEDS: RANOLAZINE 500 MG TAB.SR.12H PO SCH (21:04)
[2017-12-16] MEDS: CARBIDOPA-LEVODOPA 25-100 TAB PO SCH (21:04)
[2017-12-16] MEDS ORDERED: ZOSYN 3.375GM+NS 50ML 50 ML IV SCH (22:00)
[2017-12-16 23:38] VITALS: BP 130/75
[2017-12-17] VITALS (9 sets, daily range): BP systolic 63–146; BP diastolic 47–76
[2017-12-17] MEDS: ZOSYN 3.375GM+NS 50ML 50 ML IV SCH ×2 (00:39→12:46)
[2017-12-17 05:59] LABS: HEMATOCRIT 30.6 % (42-54); MEAN CORPUSCULAR HEMOGLOBIN 34.9 pg (27.0-33.0); MEAN CORPUSCULAR HGB CONC 34.6 g/dL (32.0-36.0); MEAN CORPUSCULAR VOLUME 100.6 fL (79-99); PLATELET COUNT (AUTO) 217 K/uL (130-400); RED BLOOD CELL COUNT(AUTO) 3.04 MIL/uL (4.50-6.20); RED CELL DISTRIBUTION WIDTH 15.1 % (11.0-15.5); WHITE BLOOD COUNT (AUTO) 5.4 K/uL (4.8-10.8)
[2017-12-17 06:24] LABS: CREATININE 1.4 mg/dL (0.5-1.5); POTASSIUM 4.9 mmol/L (3.5-5.1)
[2017-12-17] MEDS ORDERED: KETOROLAC TROMETHAMINE 15MG/ML ONE (08:53)
[2017-12-17] MEDS: CALCITONIN 3.7 ML AEROSOL NS SCH (08:57)
[2017-12-17] MEDS ORDERED: KETOROLAC TROMETHAMINE 15MG/ML IV PRN (09:00)
[2017-12-17] MEDS: METOPROLOL SUCCINATE 25 MG PO SCH (09:00)
[2017-12-17] MEDS: CARBIDOPA-LEVODOPA 25-100 TAB PO SCH ×5 (09:06→20:36)
[2017-12-17] MEDS: ISOSORBIDE MONONITRATE 20 MG TABLET PO SCH ×3 (09:06→16:46)
[2017-12-17] MEDS: FAMOTIDINE 20MG TAB 20 MG TAB PO SCH (09:07)
[2017-12-17] MEDS: LEVOTHYROXINE 112 MCG TABLET PO SCH ×3 (09:07→16:47)
[2017-12-17] MEDS: CLOPIDOGREL BISULFATE 75 MG TAB PO SCH ×2 (09:07→16:44)
[2017-12-17] MEDS: FUROSEMIDE 20 MG TABLET PO SCH ×3 (09:07→16:46)
[2017-12-17] MEDS: LOSARTAN 50 MG TABLET PO SCH ×3 (09:07→16:46)
[2017-12-17] MEDS: RANOLAZINE 500 MG TAB.SR.12H PO SCH ×3 (09:07→16:45)
[2017-12-17] MEDS: ATORVASTATIN CALCIUM 40 MG TABLET PO SCH ×2 (09:08→10:30)
[2017-12-17] MEDS: POTASSIUM CHLORIDE 20 MEQ ERTAB PO SCH ×3 (09:08→16:48)
[2017-12-17] MEDS: ENOXAPARIN SODIUM 40 MG/0.4 ML SYRINGE SQ SCH (09:09)
[2017-12-17] MEDS: VANCOMYCIN 1GM+NS 250ML 250 ML IV SCH (12:45)
[2017-12-17] MEDS ORDERED: SODIUM CHLORIDE 0.9% 1000ML 1,000 ML IV SCH ×2 (23:28→23:30)
[2017-12-18] VITALS (9 sets, daily range): BP systolic 82–144; BP diastolic 50–71
[2017-12-18] MEDS: ZOSYN 3.375GM+NS 50ML 50 ML IV SCH ×2 (00:54→13:33)
[2017-12-18] MEDS: SODIUM CHLORIDE 0.9% 1000ML 1,000 ML IV SCH ×2 (01:16→16:53)
[2017-12-18 05:54] LABS: HEMATOCRIT 26.8 % (42-54); MEAN CORPUSCULAR HEMOGLOBIN 33.9 pg (27.0-33.0); MEAN CORPUSCULAR HGB CONC 33.8 g/dL (32.0-36.0); MEAN CORPUSCULAR VOLUME 100.2 fL (79-99); PLATELET COUNT (AUTO) 169 K/uL (130-400); RED BLOOD CELL COUNT(AUTO) 2.67 MIL/uL (4.50-6.20); RED CELL DISTRIBUTION WIDTH 15.1 % (11.0-15.5); WHITE BLOOD COUNT (AUTO) 3.8 K/uL (4.8-10.8)
[2017-12-18 06:29] LABS: EOSINOPHILS % (MANUAL) 4 % (1-6); LYMPHOCYTES % (MANUAL) 25 % (22-44); MAN.DIFF COMMENT-IMPRESSION MANUAL DIFFERENTIAL; MONOCYTES % (MANUAL) 11 % (2-9); PLATELET MORPHOLOGY COMMENT ADEQUATE; SEGMENTED NEUTROPHILS % 60 % (40-70)
[2017-12-18] MEDS: ISOSORBIDE MONONITRATE 20 MG TABLET PO SCH (09:00)
[2017-12-18] MEDS: LOSARTAN 50 MG TABLET PO SCH (09:00)
[2017-12-18] MEDS: METOPROLOL SUCCINATE 25 MG PO SCH (09:00)
[2017-12-18] MEDS: CLOPIDOGREL BISULFATE 75 MG TAB PO SCH (09:46)
[2017-12-18] MEDS: LEVOTHYROXINE 112 MCG TABLET PO SCH (09:47)
[2017-12-18] MEDS: CARBIDOPA-LEVODOPA 25-100 TAB PO SCH ×4 (09:48→19:59)
[2017-12-18] MEDS: RANOLAZINE 500 MG TAB.SR.12H PO SCH ×3 (09:48→21:58)
[2017-12-18] MEDS: FUROSEMIDE 20 MG TABLET PO SCH (09:48)
[2017-12-18] MEDS: POTASSIUM CHLORIDE 20 MEQ ERTAB PO SCH ×2 (09:48→21:58)
[2017-12-18] MEDS: FAMOTIDINE 20MG TAB 20 MG TAB PO SCH (09:49)
[2017-12-18] MEDS: CALCITONIN 3.7 ML AEROSOL NS SCH (09:57)
[2017-12-18] MEDS: VANCOMYCIN 1GM+NS 250ML 250 ML IV SCH (11:26)
[2017-12-18] MEDS: ATORVASTATIN CALCIUM 40 MG TABLET PO SCH (13:33)
[2017-12-18] MEDS: ENOXAPARIN SODIUM 40 MG/0.4 ML SYRINGE SQ SCH (13:36)
[2017-12-19 00:22] VITALS: BP 117/56
[2017-12-19] MEDS: ZOSYN 3.375GM+NS 50ML 50 ML IV SCH ×2 (00:55→12:45)
[2017-12-19] MEDS: SODIUM CHLORIDE 0.9% 1000ML 1,000 ML IV SCH (02:26)
[2017-12-19 04:30] VITALS: BP 129/66
[2017-12-19 06:17] LABS: BASOPHILS % (AUTO) 0.5 % (0.0-5.0); EOSINOPHILS % (AUTO) 1.8 % (0.0-8.0); HEMATOCRIT 28.8 % (42-54); LYMPHOCYTES % (AUTO) 16.7 % (21.0-51.0); MEAN CORPUSCULAR HEMOGLOBIN 34.9 pg (27.0-33.0); MEAN CORPUSCULAR VOLUME 99.6 fL (79-99); MONOCYTES % (AUTO) 7.2 % (3.0-13.0); NEUTROPHILS % (AUTO) 73.8 % (40.0-77.0); PLATELET COUNT (AUTO) 196 K/uL (130-400); RED BLOOD CELL COUNT(AUTO) 2.89 MIL/uL (4.50-6.20); WHITE BLOOD COUNT (AUTO) 5.2 K/uL (4.8-10.8)
[2017-12-19 06:26] LABS: CREATININE 1.4 mg/dL (0.5-1.5); POTASSIUM 4.8 mmol/L (3.5-5.1)
[2017-12-19 08:54] VITALS: BP 153/99
[2017-12-19] MEDS: METOPROLOL SUCCINATE 25 MG PO SCH (09:00)
[2017-12-19] MEDS: RANOLAZINE 500 MG TAB.SR.12H PO SCH ×2 (09:34→15:46)
[2017-12-19] MEDS: FAMOTIDINE 20MG TAB 20 MG TAB PO SCH (09:35)
[2017-12-19] MEDS: ATORVASTATIN CALCIUM 40 MG TABLET PO SCH (09:35)
[2017-12-19] MEDS: CARBIDOPA-LEVODOPA 25-100 TAB PO SCH ×3 (09:35→19:01)
[2017-12-19] MEDS: LEVOTHYROXINE 112 MCG TABLET PO SCH (09:35)
[2017-12-19] MEDS: FUROSEMIDE 20 MG TABLET PO SCH (09:36)
[2017-12-19] MEDS: LOSARTAN 50 MG TABLET PO SCH (09:36)
[2017-12-19] MEDS: ISOSORBIDE MONONITRATE 20 MG TABLET PO SCH (09:37)
[2017-12-19] MEDS: CLOPIDOGREL BISULFATE 75 MG TAB PO SCH (09:37)
[2017-12-19] MEDS: POTASSIUM CHLORIDE 20 MEQ ERTAB PO SCH (09:37)
[2017-12-19] MEDS: ENOXAPARIN SODIUM 40 MG/0.4 ML SYRINGE SQ SCH (09:41)
[2017-12-19] MEDS ORDERED: CALCITONIN 3.7 ML AEROSOL NS SCH (09:49)
[2017-12-19] MEDS: VANCOMYCIN 1GM+NS 250ML 250 ML IV SCH (11:45)
[2017-12-19 12:00] VITALS: BP 137/76
[2017-12-19] MEDS ORDERED: MEGESTROL 400 MG/10 ML UDCUP PO SCH (14:30)
[2017-12-19] MEDS ORDERED: TRAZODONE HCL 50 MG TAB PO PRN (14:30)
[2017-12-19] MEDS ORDERED: VANCOMYCIN 1.5 GM in SODIUM CHLORIDE 0.9% 250 ML IV ONE (16:00)
[2017-12-19] MEDS ORDERED: VANCOMYCIN 750MG + NS 250 ML IV ONE ×2 (16:00)
[2017-12-19] MEDS ORDERED: COMPOUND IV REFRIGERATED 1 EACH IVSOLN MISC PRN (16:15)
[2017-12-19 16:20] VITALS: BP 95/68
[2017-12-19 19:44] VITALS: BP 148/63
== END 2017-12-19 21:24 | DRG 552 ==
LOC: EDH 09:07 → EDHIP 13:01 → 3DH 15:25
PROVIDERS: ADMIT Internal Medicine Nephrology; ATTEND Internal Medicine Nephrology
DX: S22.089A Unspecified fracture of T11-T12 vertebra, initial encounter for closed fracture (principal); S32.029A Unspecified fracture of second lumbar vertebra, initial encounter for closed fracture; L03.116 Cellulitis of left lower limb; L03.115 Cellulitis of right lower limb; I87.2 Venous insufficiency (chronic) (peripheral); I73.9 Peripheral vascular disease, unspecified; I25.10 Atherosclerotic heart disease of native coronary artery without angina pectoris; Z95.1 Presence of aortocoronary bypass graft; F03.90 Unspecified dementia, unspecified severity, without behavioral disturbance, psychotic disturbance, mood disturbance, and anxiety; G20 Parkinson's disease; F19.90 Other psychoactive substance use, unspecified, uncomplicated; R53.81 Other malaise; E03.9 Hypothyroidism, unspecified; I95.9 Hypotension, unspecified; L30.9 Dermatitis, unspecified; F02.80 Dementia in other diseases classified elsewhere, unspecified severity, without behavioral disturbance, psychotic disturbance, mood disturbance, and anxiety; I10 Essential (primary) hypertension; E78.5 Hyperlipidemia, unspecified; W18.30XA Fall on same level, unspecified, initial encounter; R29.2 Abnormal reflex; Z91.81 History of falling; Y92.009 Unspecified place in unspecified non-institutional (private) residence as the place of occurrence of the external cause; Z82.49 Family history of ischemic heart disease and other diseases of the circulatory system; Z87.891 Personal history of nicotine dependence; Y93.89 Activity, other specified; Y99.8 Other external cause status
CPT/HCPCS: 36415; 70450; 71045; 72125; 72128; 72131; 72170; 73080; 80048; 80053; 80202; 81003; 82550; 83605; 84484; 85025; 85027; 85651; 87040; 92610; 93005; 97039; 99291; J0360; J1650; J1885; J2543; J3370; J7030